=== PATIENT | female | born 2000 | race Two or more races ===

== ENCOUNTER 2024-11-23 07:50 | Emergency (ER) | payer MEDICAID, OTHER ==
[~2024-11-23] VITALS: Ht 167.6 cm; Wt 123.6 kg
[2024-11-23] MEDS: ACETAMINOPHEN 325 MG TAB PO ONE (09:43)
[2024-11-23] MEDS: ONDANSETRON HCL 4 MG/2 ML VIAL IV ONE (09:46)
[2024-11-23] MEDS: SODIUM CHLORIDE 0.9% 1,000 ML IV ONE (09:48)
[2024-11-23 09:59] LABS: Urine Bacteria None Seen /hpf (None Seen)
[2024-11-23 10:18] LABS: Urine Blood Negative /uL (Negative); Urine Clarity Clear (Clear); Urine Color Yellow (Yellow); Urine Mucus FEW (None Seen); Urine Protein, UAD 1+ (Negative); Urine Specific Gravity 1.044 (1.001-1.035); Urine Squamous Epithelial Cell FEW /hpf (<5); Urine Urobilinogen 6 mg/dL (Negative); Urine WBC 7 /HPF (0-5); Urine pH 6.5 (5.0-9.0)
[2024-11-23 10:26] LABS: Chloride 104 mmol/L (98-107); Sodium 138 mmol/L (136-145)
[2024-11-23 10:27] LABS: Anion Gap 10 (5-15); Carbon Dioxide 24 mmol/L (20-31)
[2024-11-23 10:28] LABS: Basophils # (auto) 0 10 ^3/uL (0-0.2); Basophils % (auto) 0.5 % (0.0-2.0); Calcium 9.3 mg/dL (8.7-10.4); Eosinophils # (auto) 0 10 ^3/uL (0-0.8); Eosinophils % (auto) 0.1 % (0.0-7.0); Lymphocytes # (auto) 1.1 10 ^3/uL (0.4-5.4); Lymphocytes % (auto) 16.2 % (10.0-50.0); Mean Corpuscular Hemoglobin 31.6 pg (28.0-32.0); Mean Corpuscular Hgb Conc. 34.9 g/dL (32.0-36.0); Mean Corpuscular Volume 90.5 fL (80.0-100.0); Monocytes # (auto) 0.6 10 ^3/uL (0-1.3); Monocytes % (auto) 9.1 % (0.0-12.0); Neutrophils % (auto) 74.1 % (37.0-80.0); Nucleated Red Blood Cells % 0.3 %; Platelet Count (auto) 195 10^3/uL (140-450); Red Blood Cells 4.42 10^6/uL (4.0-5.20); Red Cell Distribution Width 12.6 % (11.8-14.3); White Blood Cell 6.8 10^3/uL (4.4-10.8)
[2024-11-23] MEDS: PROMETHAZINE W/CODEINE 5 ML ORAL SYRUP PO ONE (10:33)
[2024-11-23 10:35] LABS: BUN/Creatinine Ratio 8.2 (10.0-20.0); Blood Urea Nitrogen < 5 mg/dL (9-23); Glucose 112 mg/dL (74-106)
[2024-11-23 10:35] LABS: COVID19 ANTIGEN SOFIA FIA NEGATIVE (NEGATIVE)
[2024-11-23 10:36] LABS: Rapid Influenza A Negative (Negative); Rapid Influenza B Negative (Negative)
[2024-11-23] MEDS ORDERED: PREN-96 PO (11:21)
--- NOTE | 2024-11-23 11:21 | ED.PDOC ---
SOB-HPI HPI Comments 24-year-old with no MHx presents with a chief complaint of URI symptoms for two days. Complains of nausea body aches cough and sore throat. Taking Tylenol as needed with some improvement. Denies fevers chills night sweats unintentional weight loss Denies persistent chest pain, shortness of breath, leg swelling Denies history of asthma nor any breathing conditions Denies history of pneumonia Denies recent international travel LMP: 4 wks ago Chief Complaint: Flu like Time Seen by MD: 08:39 Reviewed notes: Nurses Notes, Medications, Allergies Information Source: Patient Mode of Arrival: Ambulatory All Other Systems: Reviewed and Negative (per hpi) Physical Exam General Appearance: No Apparent Distress, Normal HEENT: Normal ENT Inspection, Pharynx Normal, TMs Normal Neck: Full Range of Motion, Non-Tender, Normal, Normal Inspection Respiratory: Chest Non-Tender, Lungs Clear, No Accessory Muscle Use, No Respiratory Distress, Normal Breath Sounds Cardiovascular: No Edema, No JVD, No Murmur, No Gallop, Normal Peripheral Pulses, Regular Rate/Rhythm Breast Exam: Deferred Gastrointestinal: No Organomegaly, Non Tender, No Pulsatile Mass, Normal Bowel Sounds, Soft Genitalia: Deferred Pelvic: Deferred Rectal: Deferred Extremities: No calf tenderness, Normal capillary refill, Normal inspection, Normal range of motion, Non-tender, No pedal edema Musculoskeletal : Apperance: Normal Neurologic: Alert, science writer II-XII nml as Tested, No Motor Deficits, Normal Affect, Normal Mood, No Sensory Deficits Cerebellar Function: Normal Reflexes: Normal Skin: Dry, Normal Color, Warm Lymphatic: No Adenopathy Was a procedure done? Was a procedure done?: No Differential Dx Differential Diagnosis: URI X-Ray, Labs, Meds, VS Vital Signs Date Time Temp Pulse Resp B/P (MAP) Pulse Ox O2 Delivery O2 Flow Rate FiO2 11/23/24 11:23 98.3 97 18 125/83 (97) 97 98.3 11/23/24 11:23 97 18 97 Room Air 11/23/24 08:02 98.3 96 18 122/56 (78) 97 11/23/24 08:01 18 97 Room Air* 0 21 Lab Test 11/23/24 09:32 11/23/24 09:30 Range/Units Urine Color Yellow Yellow Urine Clarity Clear Clear Urine pH 6.5 5.0-9.0 Urine Specific Marshall 1.044 H 1.001-1.035 Urine Protein 1+ H Negative Urine Ketones 2+ H Negative Urine Blood Negative Negative /uL Urine Nitrite Negative Negative Urine Bilirubin Negative Negative Urine Urobilinogen 6 Negative mg/dL Urine Leukocyte Esterase Negative Negative /uL Urine RBC 1 0 - 4 /hpf Urine Microscopic WBC 7 H 0-5 /HPF Urine Squamous Epithelial Cells Few <5 /hpf Urine Bacteria None seen None Seen /hpf Urine Mucus Few None Seen Urine Glucose Normal Normal mg/dL Urine Test Positive Negative Influenza Type A Antigen Negative Negative Influenza Type B Antigen Negative Negative SARS-CoV-2 Antigen (Rapid) Negative NEGATIVE White Blood Count 6.8 4.4-10.8 10^3/uL Red Blood Count 4.42 4.0-5.20 10^6/uL Hemoglobin 14.0 12.2-16.2 g/dL Hematocrit 40.0 36.0-46.0 % Mean Corpuscular Volume 90.5 80.0-100.0 fL Mean Corpuscular Hemoglobin 31.6 28.0-32.0 pg Mean Corpuscular Hemoglobin Concent 34.9 32.0-36.0 g/dL Red Cell Distribution Width 12.6 11.8-14.3 % Platelet Count 195 140-450 10^3/uL Mean Platelet Volume 8.2 6.9-10.8 fL Neutrophils (%) (Auto) 74.1 37.0-80.0 % Lymphocytes (%) (Auto) 16.2 10.0-50.0 % Monocytes (%) (Auto) 9.1 0.0-12.0 % Eosinophils (%) (Auto) 0.1 0.0-7.0 % Basophils (%) (Auto) 0.5 0.0-2.0 % Neutrophils # (Auto) 5.0 1.6-8.6 10 ^3/uL Lymphocytes # (Auto) 1.1 0.4-5.4 10 ^3/uL Monocytes # (Auto) 0.6 0-1.3 10 ^3/uL Eosinophils # (Auto) 0 0-0.8 10 ^3/uL Basophils # (Auto) 0 0-0.2 10 ^3/uL Nucleated Red Blood Cells 0.3 % Sodium Level 138 136-145 mmol/L Potassium Level 3.0 L 3.5-5.1 mmol/L Chloride Level 104 98-107 mmol/L Carbon Dioxide Level 24 20-31 mmol/L Anion Gap 10 5-15 Blood Urea Nitrogen < 5 L 9-23 mg/dL Creatinine 0.61 0.550-1.02 mg/dL Glomerular Filtration Rate Calc 130 >90 mL/min BUN/Creatinine Ratio 8.2 L 10.0-20.0 Serum Glucose 112 H 74-106 mg/dL Calcium Level 9.3 8.7-10.4 mg/dL Current Medications Medications (Trade) Dose Ordered Sig/Venus Route Start Time Stop Time Status Last Admin Ondansetron HCl (Zofran) 4 mg PRN ONCE IV 11/23/24 09:30 11/23/24 09:31 DC 11/23/24 09:46 Sodium Chloride 1,000 ml @ 1,000 mls/hr Q1H ONCE IV 11/23/24 09:30 11/23/24 10:29 DC 11/23/24 09:48 Acetaminophen (Tylenol Tablet) 975 mg ONCE ONCE PO 11/23/24 09:30 11/23/24 09:31 DC 11/23/24 09:43 Promethazine HCl/ Codeine (Phenergan W/ Codeine) 5 ml ONCE ONCE PO 11/23/24 10:15 11/23/24 10:16 DC 11/23/24 10:33 X-Ray, Labs, Meds, VS Comment Patient presenting with viral syndrome and + test. Considered ectopic , spectrum of miscarriage (threatened, inevitable, incomplete, complete, septic) as well as causes of female specific symptoms related to however patient did not have any red flags such as abdominal pain. Patient well appearing with normal VS. Gave strict return precautions for worsening pain, lightheadedness, syncope or other concerns. Patient will f/u in 24/48 hours with their jewel setter. On reevaluation, patient had symptomatic improvement. Patient is stable for discharge at this time. External notes reviewed. Test results and diagnostic imaging interpreted. All diagnostic findings, discharge care, education and instructions provided Follow-up with PCP in 2 to 3 days Patient verbalized understanding and agreed to treatment plan Vital signs stable, afebrile, no acute distress noted Patient ambulatory with strong steady gait Advised to return precautions for any new or worsening symptoms, return to ER immediately for re-evaluation Patient is aware that the purpose of this visit was for an acute medical emergency requiring emergent stabilization. Chronic conditions, including malignancies have not been ruled out. Patient is instructed to follow up with PCP as directed and discharge instructions for continued care and workup. If unable to arrange follow-up, patient is to return to the emergency department for reassessment. Patient (parent or legal guardian if applicable) was given verbal and written discharge instructions and acknowledges understanding. Time of 1ST Reevaluation: 11:00 Reevaluation 1ST: Improved Patient Education/Counseling: Diagnosis, Treatment Family Education/Counseling: Diagnosis, Treatment Departure 1 Departure Time of Disposition: 11:20 Impression: Primary Impression: Viral syndrome Additional Impression: Positive test Disposition: HOME / SELF CARE / HOMELESS Condition: Stable e-Prescriptions Vit W/ Ferrous Fumara ( One Daily) Daily Tab 1 TAB PO DAILY for 30 Days, #30 TAB 3 Refills Prov: COOKIE MITCHELL SELF STORAGE MANAGER 11/23/24 Critical Care Note Critical Care Time?: No Stability Stability form required: No Heart Score Heart Score: Heart Score Response (Comments) Value History N/A 0 EKG N/A 0 Age N/A 0 Risk Factors N/A 0 Troponin N/A 0 Total 0 COOKIE MITCHELL SELF STORAGE MANAGER Nov 23, 2024 11:21
[2024-11-23 11:23] VITALS: BP 125/83; PULSE 97; RESP 18; TEMP 98.3; O2SAT 97
== END 2024-11-23 11:34 | disposition home or self-care (01) ==
LOC: ER 07:50
DX: B34.9 Viral infection, unspecified (principal); M79.10 Myalgia, unspecified site; R11.0 Nausea; Z32.01 Encounter for pregnancy test, result positive; Z20.822 Contact with and (suspected) exposure to COVID-19
CPT/HCPCS: 36415; 80048; 81001; 81025; 85025; 87426; 87804; 96361; 96374; 99283; J2405; J7030